=== PATIENT | male | born 1960 | race Caucasian/White ===

== ENCOUNTER → 2021-07-28 | Outpatient (CLI) | payer MEDICAID ==
[~2021-07-28] MED LIST: BUDE6HFA; CEFD300C3; CLON0.5T3; CLON1TAB3; DULO60CA6 PO; ESCI20TA2 PO; FOLI1TAB7 PO; GUAI50GR; HYDR-2890 PO; IBP600T1 PO; LAMO200T14 PO; LEVA1.2511 IH; LEVE100015 PO; LOSA100T16 PO; LOSA1TAB15; MRTZ30T1; MTF500T PO; OMEP-10; POTA10CA16; RANI-10; RT-COMBINH; RT-COMBINH IH; TORS20TA2; TORS20TA2 PO
--- NOTE | 2021-07-28 15:31 | Diagnostic Imaging Report ---
EXAMINATION: CT chest without contrast (lung screening). TECHNIQUE: Multiple contiguous axial images were obtained through the chest without the use of intravenous contrast according to lung cancer screening protocol. All CT scans use one or more of the following dose optimizing techniques: automated exposure control, MA and/or KvP adjustment based on patient size and exam type or iterative reconstruction. HISTORY: 46 pack year history of smoking. COMPARISON: None available. FINDINGS: There is no edema or pneumonia. No pleural effusion. No pneumothorax. There is a spiculated 15 x 15 mm nodule in the right upper lobe. There are scattered tiny 2 to 3 mm nodules in the lungs which are likely related to prior infection. There is no axillary or supraclavicular lymphadenopathy. There is no mediastinal lymphadenopathy. Heart size is normal. There are moderate coronary artery calcifications. No pericardial effusion. Aorta is normal in caliber. Limited views of the upper abdomen are unremarkable. There are no suspicious osseus lesions. IMPRESSION: 1. Spiculated 15 x 15 mm right upper lobe pulmonary nodule. Tissue sampling is recommended as this is highly likely to represent a lung cancer. LUNG-RADS CATEGORY: 4X MODIFIER: None. Report given to DARLEEN Smith for Dr. Eduard Eid MD at 3:28 PM on 07/28/2021/cb Report faxed at 3:29 PM on 07/28/2021/cb Dictated by: Dictated on workstation # [id number]
== END ==
LOC: RAD 09:15
PROVIDERS: ATTEND Internal Medicine Critical Care Medicine
DX: Z12.2 Encounter for screening for malignant neoplasm of respiratory organs (principal); R91.1 Solitary pulmonary nodule; F17.210 Nicotine dependence, cigarettes, uncomplicated
CPT/HCPCS: 71271

== ENCOUNTER → 2021-09-01 | Outpatient (CLI) | payer MEDICAID ==
--- NOTE | 2021-09-01 13:10 | Diagnostic Imaging Report ---
INDICATION: Abnormal chest CT. Study is performed for initial staging. Serum blood glucose level at the time of ejection is 98 mg/dL. Patient was administered 14.1 mCi F-18 FDG intravenously in the left forearm and pet imaging was performed from the top of skull to mid thighs. Noncontrast CT was also performed for attenuation correction and anatomic correlation. No prior PET/CT studies available for comparison. Comparison is made with screening CT chest study from 07/28/2021. There is symmetric activity throughout the brain. Soft tissues of the neck are unremarkable. The spiculated lesion previously described in the right upper lobe shows low-level mild hypermetabolic activity with an SUV max of 3.4. There is some activity in the right hilum as well with an SUV max of 4.7. Left hilum is unremarkable. No other pulmonary parenchymal regions of hypermetabolism are identified. Abdomen and pelvis demonstrate physiologic activity throughout the gastrointestinal and genitourinary tracts. No suspicious regions of hypermetabolism are identified. IMPRESSION: Mildly hypermetabolic spiculated mass in the right upper lobe consistent with patient's known newly diagnosed lung carcinoma. There are also some mildly hypermetabolic lymph nodes in the right hilum, as suspicious for a right hilar or metastatic disease. No other regions of hypermetabolism are identified. Dictated by: Dictated on workstation # [id number]
== END ==
LOC: RAD 09:00
PROVIDERS: ATTEND Internal Medicine Critical Care Medicine
DX: R91.8 Other nonspecific abnormal finding of lung field (principal)